=== PATIENT | male | born 1990 | race Caucasian/White ===

== ENCOUNTER → 2017-04-24 | Outpatient (CLI) | payer SELFPAY ==
[~2017-04-24] MED LIST: PERC5TAB8; VITA500T
== END ==
LOC: M OUTALCOH 12:24
PROVIDERS: ATTEND Psychiatry & Neurology Psychiatry
DX: Z03.89 Encounter for observation for other suspected diseases and conditions ruled out (principal)

== ENCOUNTER 2017-05-15 15:06 | Outpatient (RCR) | payer SELFPAY | END 2017-05-29 | LOC: M OUTALCOH 15:06 | PROVIDERS: ATTEND Psychiatry & Neurology Psychiatry | DX: Z03.89 Encounter for observation for other suspected diseases and conditions ruled out (principal) ==

== ENCOUNTER 2017-07-16 12:37 | Emergency (ER) | payer MEDICAID, SELFPAY ==
[~2017-07-16] VITALS: Ht 180.3 cm; Wt 113.6 kg
[2017-07-16] MEDS ORDERED: ADACEL/BOOSTRIX VACCINE (DIPHTH/PERTUSS/ACELL/TETANUS)0.5ML SYR (90715) IM ONE (13:15)
[2017-07-16] MEDS ORDERED: LIDOCAINE 1% MDV 20ML VIAL IM ONE (13:15)
[2017-07-16] MEDS ORDERED: LIDOCAINE 2% MDV 20 ML VIAL SC ONE (13:30)
[2017-07-16 15:05] VITALS: BP 140/83
== END 2017-07-16 15:38 | disposition home or self-care (01) ==
LOC: M ED 12:37
DX: S61.412A Laceration without foreign body of left hand, initial encounter (principal); S61.213A Laceration without foreign body of left middle finger without damage to nail, initial encounter; S61.217A Laceration without foreign body of left little finger without damage to nail, initial encounter; W25.XXXA Contact with sharp glass, initial encounter; Y92.009 Unspecified place in unspecified non-institutional (private) residence as the place of occurrence of the external cause; Y93.02 Activity, running; Y99.8 Other external cause status

== ENCOUNTER 2017-08-03 21:05 | Inpatient (IN) | payer SELFPAY ==
[~2017-08-03] VITALS: Ht 180.3 cm; Wt 96.0 kg
[2017-08-03 22:19] LABS: MEAN CORPUSCULAR HEMOGLOBIN 31.3 pg (27.0-33.0); MEAN CORPUSCULAR HGB CONC 33.7 g/dl (32.0-36.5); MEAN CORPUSCULAR VOLUME 92.6 fl (80.0-96.0); RED CELL DISTRIBUTION WIDTH 13.8 % (11.5-14.5); WHITE BLOOD COUNT 7.3 10^3/uL (4.0-10.0)
[2017-08-03 22:37] LABS: METHADONE URINE NEGATIVE (NEGATIVE)
[2017-08-03 22:53] LABS: ALBUMIN 3.8 GM/DL (3.2-5.2); ALBUMIN/GLOBULIN RATIO 0.95 (1.00-1.93); ALKALINE PHOSPHATASE 59 U/L (45-117); ALT/SGPT 92 U/L (12-78); ANION GAP 8 MEQ/L (8-16); AST/SGOT 55 U/L (15-37); BILIRUBIN,DIRECT 0.2 MG/DL (0.0-0.2); BILIRUBIN,TOTAL 0.5 MG/DL (0.2-1.0); BLOOD UREA NITROGEN 13 MG/DL (7-18); CALCIUM LEVEL 9.2 MG/DL (8.5-10.1); CARBON DIOXIDE LEVEL 29 MEQ/L (21-32); CHLORIDE LEVEL 104 MEQ/L (98-107); CREATININE FOR GFR 1.15 MG/DL (0.70-1.30); GLOMERULAR FILTRATION RATE > 60.0 (>60); GLUCOSE, FASTING 117 MG/DL (70-105); POTASSIUM SERUM 4.2 MEQ/L (3.5-5.1); SODIUM LEVEL 141 MEQ/L (136-145); TOTAL PROTEIN 7.8 GM/DL (6.4-8.2)
[2017-08-04] MEDS ORDERED: MOM 30ML SUSPENSION UDC PO PRN (00:45)
[2017-08-04] MEDS ORDERED: traZODone 50 MG TAB PO PRN (00:45)
[2017-08-04] MEDS ORDERED: MAALOX 30 ML SUSP *UDC PO PRN (00:45)
[2017-08-04] MEDS ORDERED: ACETAMINOPHEN TAB 650MG DOSE (2X325MG) PO PRN (00:45)
[2017-08-04 01:50] VITALS: BP 166/92
--- NOTE | 2017-08-04 10:04 | HPEPDOC ---
[facility] Medical History & Physical Date of Admission Aug 03, 2017 History and Physical PCP: None ATTENDING: Dr. Dar Isabel HPI: 27 yo M admitted to [facility] for unspecified depressive disorder, being medically examined today. No acute medical complaints today. Patient was seen at the emergency department 07/16/17 related to laceration of the left hand. He states sutures have been removed and it has healed. He states he had accidentally put his hand through the window pane of a [place] door. Denies any fevers, chills, weakness, fatigue, ESPINAL, CP, SOB, cough, palpitations, abdominal pain, N/V/D or changes in bowel or bladder habits. 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 ROS: As noted in HPI, otherwise 11pt ROS of systems reviewed and unremarkable. PE: GEN: 27 yo M, appears stated age. Well-nourished, well developed. No acute distress. Alert and oriented x 3. Pleasant, interactive. HEENT: Normocephalic, atraumatic. Pupils are equal, round, and reactive to light. Extraocular movements are intact. No nystagmus appreciated. Sclera are nonicteric. Conjunctiva without injection. Nose midline. Nasal turbinates without bogginess. EACs both patent BL. TMs both visualized and reynoso with good cone of light, no bulging or erythema. No facial asymmetry. Moist mucous membranes. Dentition fair. Pharynx pink and moist, no cobblestoning. Neck supple , trachea midline. No lymphadenopathy or thyromegaly appreciated. CHEST: Regular rate and rhythm, +S1, +S2 LUNGS: Clear to auscultation bilaterally. No wheezes, rales, or rhonchi. Breathing appears symmetric and easy. Patient is speaking in full sentences. No accessory muscle use. ABD: Round, soft, non-tender, non-distended. +Bowel sounds throughout. No rebound or guarding. No costovertebral angle tenderness. EXT: Pulses 2+ bilaterally dorsalis pedis and radial. No lower extremity edema appreciated. SKIN: [place], dry, warm. Capillary refill <2sec. No rashes. Healed lacerations are noted of the left hand. No erythema. NEURO: Alert and oriented x 3. Cranial nerves III-XII are intact. No focal deficits appreciated. EKG: Pending. A&P: 27 yo M admitted to [facility] for unspecified depressive disorder 1. Psych. Plan per Psychiatry. Obtain baseline EKG to assure the safety of psychiatric medications as they can prolong the QT interval. 2. Nicotine dependence. Patch available. 3. Follow up. No Primary Care Provider. Will attempt to establish PCP on discharge. 4. Abnormal LFTs. Recheck CMP in a.m. Check hepatitis profile. 5. Staff member Ed present throughout exam. Vital Signs Vital Signs Date Time Temp Pulse Resp B/P (MAP) Pulse Ox O2 Delivery O2 Flow Rate FiO2 08/04/17 01:50 97.7 88 20 166/92 (116) 98 Room Air Laboratory Data Labs 24H Laboratory Tests 2 08/03/17 21:55: Anion Gap 8, Glomerular Filtration Rate > 60.0, Calcium Level 9.2, Aspartate Amino Transf (AST/SGOT) 55H, Alanine Aminotransferase (ALT/SGPT) 92H, Alkaline Phosphatase 59, Total Bilirubin 0.5, Direct Bilirubin 0.2, Total Protein 7.8, Albumin 3.8, Albumin/Globulin Ratio 0.95L, Thyroid Stimulating Hormone (TSH) 3.310, Salicylates Level < 1.7L, Urine Amphetamines Screen NEGATIVE, Urine Benzodiazepines Screen NEGATIVE, Urine Opiates Screen NEGATIVE, Urine Methadone Screen NEGATIVE, Acetaminophen Level < 2.0L, Urine Barbiturates Screen NEGATIVE , Urine Phencyclidine Screen NEGATIVE, Urine Cocaine Metabolite Screen NEGATIVE , Urine Cannabinoids Screen NEGATIVE, Ethyl Alcohol Level < 0.003 CBC/BMP Laboratory Tests 08/03/17 21:55 Red Blood Count 5.44, Mean Corpuscular Volume 92.6, Mean Corpuscular Hemoglobin 31.3, Mean Corpuscular Hemoglobin Concent 33.7, Red Cell Distribution Width 13.8 Home Medications No Active Prescriptions or Reported Meds Allergies Coded Allergies: No Known Allergies (Verified Allergy, Unknown, 10/30/09) Irene Martinez Aug 04, 2017 10:04
--- NOTE | 2017-08-04 11:37 | MHHPEPDOC ---
[facility] History & Physical History and Physical DATE OF ADMISSION: Aug 04, 2017 at 00:39 LEGAL STATUS AT ADMISSION: 9.39 CHIEF COMPLAINT: "My family said I was suicidal". HISTORY OF THE PRESENT ILLNESS: Patient is a 27-year-old male, who presents with high intensity, perhaps anxiety. Pt denies suicidal thoughts or plan then contradicts himself by saying he told his family to "be careful what you wish for" and identifies hanging as a plan he gave to them. Pt is on probation for a DUI in September of 2016. He states he is in a "toxic relationship" with Tushar, the mother of his son and that he was "pissed" at her. He denies low mood but says his GF "needs help". Pt denies making a suicide attempt prior to admission or at anytime in the past. This will need to be confirmed by his family. He resides with either mom and step-day or his grand parents. 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 Tushar has custody of their son and has a son from another relationship. There is no legal arrangement regarding visitation or child support. PSYCHIATRIC REVIEW OF SYSTEMS: Affective: tense. Anxiety: moderate to high. Trauma: denies Psychosis: denies Personally: guarded PAST PSYCHIATRIC HISTORY: Prior Psychiatric Disorder: ETOH eval after DUI, no additional treatment recommended. Outpatient Treatment: none Suicidal/Self injurious: denies Psychotropic Medication History: denies ALLERGIES: Please see below. FAMILY PSYCHIATRIC HISTORY: denies SOCIAL HISTORY: Early Relations/development: born in [place], raised in [place] and returned here every summer. Graduated from [employer]. Raised by mom and step-dad and grandparents. Sibling order: only child Paternal relationships: not addressed. 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 Was in [employer] for 2.5 years in 2010 Legal: on Probation until January for DUI Martial: not , one son - months old. Economic: employed Supports: mother, step dad, grandparents, friends but denies need for any support Abuse/trauma: denies SUBSTANCE ABUSE HISTORY: denies ETOH use in 18 months. Toxicology negative PAST MEDICAL/SURGICAL HISTORY: VITAL SIGNS: Temperature , pulse , respiratory rate , blood pressure , pulse oximetry % on room air. MENTAL STATUS EXAMINATION: General appearance: Patient is a 27-year old male, who appears older than given age. Dark hair, dark horn, shoulders up by ears hands gripping side of mattress. Dressed in hospital attire. cooperative, guarded. Speech: spontaneous Thought processes: linear. Thought content: appropriate Abstract reasoning and computation: good. Description of associations: good. Description of abnormal or psychotic thoughts: denies, minimizes entire event, denies being suicidal said family and GF told him to kill himself. Judgment: limited Insight: limited Orientation: well oriented x 4. Recent and remote memory: intact Attention span and concentration: good. Fund of knowledge: full Mood: dysphoric Affect: nervous DIAGNOSES: 1. depressive episode unspecified 2. substance use disorder, in remission 3. r/o narcissist personality disorder or passive aggressive personality ASSESSMENT: pt describes his energy as "perfect", concentration is "perfect", reports sleep as 8 hours with no interruptions or nightmares. Denies SI, denies psychomotor disturbances. Denies panic, worry or anxiety. Pt minimizing events leading up to admission and not offering much insight into what prompted his family to accompany him here. Plan: obtain collateral information. PROBLEM LIST: 1. risk for suicide/self injury "be careful what you wish for" 2. poor impulse control 3. ineffective coping INITIAL TREATMENT PLAN: 1. Patient was admitted on a 9.39 2. Complete history was obtained. 3. With patients permission, family will be contacted and database will be expanded. 4. Patients medication regimen will be reviewed and changed accordingly. 5. Patient will be provided with protected environment. 6. Patient will be treated with individual, group, and milieu therapies. 7. Patient will receive supportive psych-education. 8. Discharge planning will commence immediately. 9. Outpatient follow-up treatment will be strongly recommended. 10. The initial treatment plan will focus initially on: * Depression. * Risk for suicide. * Substance abuse. ESTIMATED LENGTH OF STAY: 4-5 DAYS. TIME SPENT COUNSELING AND COORDINATING INITIAL CARE: 50 minutes. Laboratory Data 24H Labs Laboratory Tests 2 08/03/17 21:55: Anion Gap 8, Glomerular Filtration Rate > 60.0, Calcium Level 9.2, Aspartate Amino Transf (AST/SGOT) 55H, Alanine Aminotransferase (ALT/SGPT) 92H, Alkaline Phosphatase 59, Total Bilirubin 0.5, Direct Bilirubin 0.2, Total Protein 7.8, Albumin 3.8, Albumin/Globulin Ratio 0.95L, Thyroid Stimulating Hormone (TSH) 3.310, Salicylates Level < 1.7L, Urine Amphetamines Screen NEGATIVE, Urine Benzodiazepines Screen NEGATIVE, Urine Opiates Screen NEGATIVE, Urine Methadone Screen NEGATIVE, Acetaminophen Level < 2.0L, Urine Barbiturates Screen NEGATIVE , Urine Phencyclidine Screen NEGATIVE, Urine Cocaine Metabolite Screen NEGATIVE , Urine Cannabinoids Screen NEGATIVE, Ethyl Alcohol Level < 0.003 CBC/BMP Laboratory Tests 08/03/17 21:55 Red Blood Count 5.44, Mean Corpuscular Volume 92.6, Mean Corpuscular Hemoglobin 31.3, Mean Corpuscular Hemoglobin Concent 33.7, Red Cell Distribution Width 13.8 Medications No Active Prescriptions or Reported Meds Allergies Coded Allergies: No Known Allergies (Verified Allergy, Unknown, 10/30/09) Ligia Erwin Aug 04, 2017 11:37
--- NOTE | 2017-08-04 16:21 | MHDSPDOC ---
[facility] Discharge Summary Discharge Summary DATE OF ADMISSION: Aug 04, 2017 at 00:39 DATE OF DISCHARGE: DISCHARGE DIAGNOSES: 1. depressive episode unspecified 2. substance use disorder, in remission 3. r/o narcissist personality disorder or passive aggressive personality REASON FOR ADMISSION: pt threatened suicide "because I was pissed" and family was fearful he would act on it. Was texting mother that he had tequila and a rope. Mom encouraged him to get help and he did come with her to the emergency room. CONSULTANTS INVOLVED: NA TREATMENT AND PROGRESS ON THE UNIT : pt was angry from the beginning of the admission process. He says he would never kill himself and grossly minimized the entire event leading up to admission. On evaluation based on his answers he did not meet criteria for a mental illness. He declined to leave his room for groups or meals. HOSPITAL COURSE: Pts mother was contacted about a family meeting. She wanted to come in today and if possible bring him home. 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 We agreed to the meeting and mom explained that his GF can manipulate him and he has left 3 jobs to come back to this area and be with her but she does not want him. He is on probation for a DUI and there is a chance they will discharge him early for this job as he has attended to all the aspects required of his probation. He declined to sign an yadira so we could discuss this situation with the PO. DISCHARGE ASSESSMENT: Pt agrees to therapy at [facility]. He is currently no abusing alcohol or any other substance. he needs to make a decision based on his needs and what is in his best interest and take the focus off the GF and how she needs "to fix this" meaning their relationship. Pt unable to fully comprehend the importance of detaching from this relationship. Pt claims he will stick with therapy and he will stop making suicidal threats. Mom states she is broken up by his frequent threats of suicide and how she feels responsible should he do something to hurt himself because she (mom) could not force the GF to talk to him. This is a complex relationship lasting 5-6 years that will take a substantial amount of time to iron out. MENTAL STATUS EXAMINATION: General appearance: Patient is a 27-year old male, who appears older than given age. Dark hair, dark horn, shoulders up by ears hands gripping side of mattress. Dressed in hospital attire. cooperative, guarded. Speech: spontaneous Thought processes: linear. Thought content: appropriate Abstract reasoning and computation: good. Description of associations: good. Description of abnormal or psychotic thoughts: denies, minimizes entire event, denies being suicidal said family and GF told him to kill himself. Judgment: limited Insight: limited Orientation: well oriented x 4. Recent and remote memory: intact Attention span and concentration: good. Fund of knowledge: full Mood: dysphoric Affect: nervous MEDICATIONS ON DISCHARGE: none PLAN/FOLLOWUP ARRANGEMENTS: Therapy - Intake on Tuesday 08/07 at [facility]. pt advised to apply for medicaid. The amount of time spent in the coordination of care for this patient was approximately 40 minutes. Vital Signs/I&Os Vital Signs Date Time Temp Pulse Resp B/P (MAP) Pulse Ox O2 Delivery O2 Flow Rate FiO2 08/04/17 01:50 97.7 88 20 166/92 (116) 98 Room Air Laboratory Data Labs 24H Laboratory Tests 2 08/03/17 21:55: Anion Gap 8, Glomerular Filtration Rate > 60.0, Calcium Level 9.2, Aspartate Amino Transf (AST/SGOT) 55H, Alanine Aminotransferase (ALT/SGPT) 92H, Alkaline Phosphatase 59, Total Bilirubin 0.5, Direct Bilirubin 0.2, Total Protein 7.8, Albumin 3.8, Albumin/Globulin Ratio 0.95L, Thyroid Stimulating Hormone (TSH) 3.310, Salicylates Level < 1.7L, Urine Amphetamines Screen NEGATIVE, Urine Benzodiazepines Screen NEGATIVE, Urine Opiates Screen NEGATIVE, Urine Methadone Screen NEGATIVE, Acetaminophen Level < 2.0L, Urine Barbiturates Screen NEGATIVE , Urine Phencyclidine Screen NEGATIVE, Urine Cocaine Metabolite Screen NEGATIVE , Urine Cannabinoids Screen NEGATIVE, Ethyl Alcohol Level < 0.003, Hepatitis A IgM Antibody NEGATIVE, Hepatitis B Surface Antigen NEGATIVE, Hepatitis B Core IgM Antibody NEGATIVE, Hepatitis C Antibody Index 0.1 CBC/BMP Laboratory Tests 08/03/17 21:55 Red Blood Count 5.44, Mean Corpuscular Volume 92.6, Mean Corpuscular Hemoglobin 31.3, Mean Corpuscular Hemoglobin Concent 33.7, Red Cell Distribution Width 13.8 Medications No Active Prescriptions or Reported Meds Allergies Coded Allergies: No Known Allergies (Verified Allergy, Unknown, 10/30/09) Ligia Erwin Aug 04, 2017 16:21
== END 2017-08-04 16:05 | disposition home or self-care (01) | DRG 754 ==
LOC: M ED 21:05 → M ED INP 08-04 00:39 → M PSY 08-04 01:56
PROVIDERS: ADMIT Psychiatry & Neurology Psychiatry; ATTEND Psychiatry & Neurology Psychiatry
DX: F32.9 Major depressive disorder, single episode, unspecified (principal); R45.851 Suicidal ideations; F19.21 Other psychoactive substance dependence, in remission; F60.81 Narcissistic personality disorder; F60.89 Other specific personality disorders; Z72.0 Tobacco use; R94.5 Abnormal results of liver function studies

== ENCOUNTER → 2020-05-31 | Outpatient (REF) | payer SELFPAY ==
[2020-07-14 12:07] LABS: CHLAMYDIA DNA AMPLIFICATION NEGATIVE (NEGATIVE); GC DNA AMPLIFICATION POSITIVE (NEGATIVE)
== END ==
LOC: M WUC 07:37
PROVIDERS: ATTEND Physician Assistant
DX: R30.0 Dysuria (principal)

== ENCOUNTER 2022-08-09 12:19 | Emergency (ER) | payer OTHER, SELFPAY ==
[~2022-08-09] VITALS: Ht 180.3 cm; Wt 98.6 kg
[2022-08-09 14:04] VITALS: BP 135/70
== END 2022-08-09 14:05 | disposition home or self-care (01) ==
LOC: M ED 12:19 → EDBD 12:19 → M ED 14:05
DX: M25.512 Pain in left shoulder (principal); S16.1XXA Strain of muscle, fascia and tendon at neck level, initial encounter; S29.012A Strain of muscle and tendon of back wall of thorax, initial encounter; V49.50XA Passenger injured in collision with unspecified motor vehicles in traffic accident, initial encounter